=== PATIENT | female | born 1970 | race Caucasian/White ===

== ENCOUNTER 2017-10-16 18:04 | Emergency (ER) | payer OTHER ==
[~2017-10-16] VITALS: Ht 170.2 cm; Wt 85.3 kg
== END 2017-10-16 20:30 | disposition home or self-care (01) ==
LOC: ER 18:04
DX: J06.9 Acute upper respiratory infection, unspecified (principal)

== ENCOUNTER 2021-06-13 10:18 | Emergency (ER) | payer OTHER ==
[~2021-06-13] VITALS: Ht 170.2 cm; Wt 86.2 kg
== END 2021-06-13 16:29 | disposition home or self-care (01) ==
LOC: ER 10:18
DX: R51.9 Headache, unspecified (principal); J01.00 Acute maxillary sinusitis, unspecified

== ENCOUNTER 2022-03-26 11:21 | Emergency (ER) | payer OTHER ==
[~2022-03-26] VITALS: Ht 170.2 cm; Wt 90.7 kg
== END 2022-03-26 15:59 | disposition home or self-care (01) ==
LOC: ER 11:21
DX: R42 Dizziness and giddiness (principal); Z88.8 Allergy status to other drugs, medicaments and biological substances

== ENCOUNTER 2022-10-27 06:25 | Day surgery (SDC) | payer OTHER ==
[~2022-10-27] VITALS: Ht 170.2 cm; Wt 90.3 kg
== END 2022-10-27 16:35 | disposition home or self-care (01) ==
LOC: CIR.AMB 06:25
PROVIDERS: ATTEND Orthopaedic Surgery Hand Surgery
DX: S63.302A Traumatic rupture of unspecified ligament of left wrist, initial encounter (principal); M65.232 Calcific tendinitis, left forearm; E11.9 Type 2 diabetes mellitus without complications; E78.00 Pure hypercholesterolemia, unspecified; Z20.822 Contact with and (suspected) exposure to COVID-19; I10 Essential (primary) hypertension

== ENCOUNTER 2023-04-27 16:22 | Emergency (ER) | payer OTHER ==
[~2023-04-27] VITALS: Ht 170.2 cm; Wt 88.9 kg
== END 2023-04-27 21:18 | disposition home or self-care (01) ==
LOC: ER 16:22
DX: R51.9 Headache, unspecified (principal); I10 Essential (primary) hypertension; Z88.6 Allergy status to analgesic agent

== ENCOUNTER 2023-06-07 12:47 | Emergency (ER) | payer OTHER ==
[~2023-06-07] VITALS: Ht 170.2 cm; Wt 89.8 kg
[2023-06-07] MEDS ORDERED: PROAIR RESPICL90 MCG (13:05)
[2023-06-07] MEDS ORDERED: MILLIPRED5 MG (13:05)
[2023-06-07] MEDS ORDERED: ZITHROMAX500 MG PO (13:06)
[2023-06-07] MEDS ORDERED: BENZONATATE100 MG PO (13:07)
[2023-06-07 14:13] LABS: HEMATOCRIT 36.7 % (36.0-45.00); HEMOGLOBIN 12.1 g/dL (12.0-15.00); MEAN CELL VOLUME 88.7 fL (80.00-100.00); MEAN CORPUSCULAR HEMOGLOBIN 29.2 pg (27.00-32.0); MEAN CORPUSCULAR HGB CONC 32.9 g/dl (32.0-36.0); PLATELET COUNT 441 K/uL (150-450); RED BLOOD COUNT 4.14 M/uL (4.00-6.00); RED CELL DISTRIBUTION WIDTH 13.8 % (11.5-14.5)
[2023-06-07 14:31] LABS: ABG PH 7.415 (7.35-7.45); ABG pCO2 41.9 mmHg (35-45); BASE EXCESS 1.5 mmol/l; BICARBONATE 26.3 mmol/l (23-25); SaO2 97.5 %; Tco2 27.6 mmol/l; allen test SATISFACTORY; o2 21 %; puncture site RADIAL LEFT
[2023-06-07 14:32] LABS: ABG PO2 94.6 mmHg (80-100)
== END 2023-06-07 16:39 | disposition home or self-care (01) ==
LOC: ER 12:47
PROVIDERS: Emergency Medicine
DX: J45.998 Other asthma (principal); Z20.822 Contact with and (suspected) exposure to COVID-19; Z88.6 Allergy status to analgesic agent

== ENCOUNTER → 2024-05-15 | Emergency (ER) | payer OTHER ==
[~2024-05-15] VITALS: Ht 170.2 cm; Wt 87.1 kg
[~2024-05-15] MED LIST: ALBUTEROL1.25 MG/3 IH; BENZONATATE100 MG PO; DEXAMETHASONE SODIUM PHOSPHATE 4 MG/ML VIAL IM STA; IPRAT-ALBUT 0.5-3 ML IH; MEDROLPACK PO; MILLIPRED5 MG; ORPHENADRINE CITRATE 30 MG/ML AMPUL IM STA; PROAIR RESPICL90 MCG; SINGULAIR10 MG PO; TUSSIN DM SYRU118 ML PO; ZITHROMAX500 MG PO
== END | disposition home or self-care (01) ==
LOC: ER 11:15
DX: M43.6 Torticollis (principal); M62.838 Other muscle spasm; Z88.6 Allergy status to analgesic agent
CPT/HCPCS: 96372; 99282; J1100; J2360

== ENCOUNTER 2024-07-26 22:15 | Emergency (ER) | payer OTHER ==
[~2024-07-26] VITALS: Ht 167.6 cm; Wt 86.2 kg
[~2024-07-26 22:15] MED LIST changes: -DEXAMETHASONE SODIUM PHOSPHATE 4 MG/ML VIAL IM STA; -ORPHENADRINE CITRATE 30 MG/ML AMPUL IM STA
[2024-07-27] MEDS ORDERED: HYDROCODONE/CHLORPHEN P-STIREX 5 ML ML PO STA (01:34)
[2024-07-27] MEDS ORDERED: METHYLPREDNISOLONE SOD SUCC 125 MG VIAL IM STA (01:34)
[2024-07-27] MEDS ORDERED: METHYLPREDNISOLONE SOD SUCC 125 MG VIAL ONE (01:41)
[2024-07-27] MEDS ORDERED: ALBUTEROL SULFATE 3 ML/2.5 MG AMPUL.NEB IH SCH (01:45)
[2024-07-27 02:15] LABS: HEMATOCRIT 39.5 % (36.0-45.00); HEMOGLOBIN 12.9 g/dL (12.0-15.00); MEAN CELL VOLUME 90.6 fL (80.00-100.00); MEAN CORPUSCULAR HEMOGLOBIN 29.6 pg (27.00-32.0); MEAN CORPUSCULAR HGB CONC 32.7 g/dl (32.0-36.0); PLATELET COUNT 386 K/uL (150-450); RED BLOOD COUNT 4.36 M/uL (4.00-6.00); RED CELL DISTRIBUTION WIDTH 14.1 % (11.5-14.5)
[2024-07-27] MEDS ORDERED: ALBUTEROL SULFATE 3 ML/2.5 MG AMPUL.NEB IH ONE (02:51)
[2024-07-27] MEDS ORDERED: ALBUTEROL2.5 MG/3 M IH (04:45)
[2024-07-27] MEDS ORDERED: ZITHROMAX500 MG PO (04:45)
== END 2024-07-27 04:52 ==
LOC: ER 22:18
PROVIDERS: General Practice
DX: J40 Bronchitis, not specified as acute or chronic (principal); Z20.822 Contact with and (suspected) exposure to COVID-19; Z88.6 Allergy status to analgesic agent; Z87.09 Personal history of other diseases of the respiratory system